=== PATIENT | male | born 1955 | race Caucasian/White ===

== ENCOUNTER 2018-12-12 18:39 | Outpatient (CLI) | payer BC | END 2018-12-12 18:40 | disposition home or self-care (01) | LOC: C.SLEEP 18:40 | DX: G47.33 Obstructive sleep apnea (adult) (pediatric) (principal) ==

== ENCOUNTER 2019-01-05 19:11 | Outpatient (CLI) | payer BC | END 2019-01-05 19:12 | disposition home or self-care (01) | LOC: C.SLEEP 19:12 | DX: G47.33 Obstructive sleep apnea (adult) (pediatric) (principal) ==